=== PATIENT | male | born 1945 | race Caucasian/White ===

== ENCOUNTER 2019-12-18 10:48 | Day surgery (SDC) | payer MEDICARE, OTHER ==
[~2019-12-18] VITALS: Ht 198.1 cm; Wt 136.9 kg
[2019-12-18] MEDS ORDERED: ACYC-202 PO (11:19)
[2019-12-18] MEDS ORDERED: PANT40TA4 PO (11:19)
[2019-12-18] MEDS ORDERED: OXYC10TA47 PO (11:19)
[2019-12-18] MEDS ORDERED: METO-384 PO (11:19)
[2019-12-18] MEDS ORDERED: BACDS PO (11:19)
[2019-12-18] MEDS ORDERED: ATOR10TA70 PO (11:19)
[2019-12-18] MEDS ORDERED: PREG100C PO (11:26)
[2019-12-18] MEDS ORDERED: MULT-1085 PO (11:26)
[2019-12-18] MEDS ORDERED: vitamin d3 PO (11:26)
[2019-12-18] MEDS ORDERED: MELO7.5T12 PO (11:26)
[2019-12-18] MEDS ORDERED: DOCU-148 PO (11:26)
[2019-12-18] MEDS ORDERED: MAGN400C PO (11:26)
[2019-12-18] MEDS ORDERED: POTA10TA36 PO (11:26)
[2019-12-18] MEDS ORDERED: LIDO30CR23 TOP (11:26)
[2019-12-18 11:30] VITALS: BP 127/74
[2019-12-18 12:01] LABS: ALBUMIN 3.1 G/DL (3.4-5.0); ANION GAP 4 (8-16); BLOOD UREA NITROGEN 17 MG/DL (7-18); BUN/CREATININE RATIO 12.7 (5.4-32.0); CALCIUM 8.6 MG/DL (8.5-10.1); CHLORIDE 108 MMOL/L (99-107); CREATININE 1.34 MG/DL (0.60-1.10); GLUCOSE 108 MG/DL (70-104); POTASSIUM 4.4 MMOL/L (3.5-5.1); SODIUM 143 MMOL/L (135-145); TOTAL CARBON DIOXIDE 31.2 MMOL/L (24-32); eGFR 52 ML/MIN
[2019-12-18] MEDS ORDERED: midazolam 2 mg/2 ml injection ONE ×2 (12:26→13:33)
[2019-12-18] MEDS ORDERED: fentaNYL/PF 50MCG/1 ML 2ML syringe ONE ×3 (12:27→14:12)
[2019-12-18] MEDS ORDERED: iohexol 300 MG/1 ML 50ml polymer ONE (12:30)
[2019-12-18] MEDS ORDERED: LIDOcaine 1%/PF 5ML 10 MG/ML VIAL ONE ×2 (13:15→14:12)
[2019-12-18] MEDS ORDERED: heparin sodium, porcine/PF 100unit/ml 5ML syringe ONE (13:15)
[2019-12-18] MEDS ORDERED: ceFAZolin 1GM/D5W- ADD-VANTAGE 50 ML IV ONE (13:40)
[2019-12-18 15:00] VITALS: BP 137/69
[2019-12-18] MEDS ORDERED: normal saline 1000ml 1,000 ML IV SCH (15:02)
--- NOTE | 2019-12-18 15:10 | NUR ---
pt returned to room. Pt up to bathroom, voided. pt eating lunch tray and drinking. 250 ml juice. Pt a/o x4, denies pain. pt vs stable as charted.
--- NOTE | 2019-12-18 15:15 | NUR ---
Late Entry: Problems reprioritized. Patient report given, questions answered & plan of care reviewed with Franky Guerrero
== END 2019-12-18 16:00 | disposition home or self-care (01) ==
LOC: MED 3N 10:48 → U 10:48
PROVIDERS: ATTEND Radiology Vascular & Interventional Radiology
DX: C83.10 Mantle cell lymphoma, unspecified site (principal); Z96.652 Presence of left artificial knee joint; Z98.41 Cataract extraction status, right eye; Z98.42 Cataract extraction status, left eye; Z98.890 Other specified postprocedural states; Z90.49 Acquired absence of other specified parts of digestive tract; Z98.52 Vasectomy status; Z98.1 Arthrodesis status; Z80.59 Family history of malignant neoplasm of other urinary tract organ; Z84.89 Family history of other specified conditions; Z79.899 Other long term (current) drug therapy
CPT/HCPCS: 36415; 36561; 36590; 76937; 77001; 80048; 99152; 99153; C1769; C1788; C1894; J1642; J2250; J3010; Q9967